=== PATIENT | male | born 1940 | race Native Hawaiian/Other Pacific Islander ===

== ENCOUNTER 2020-03-04 15:15 | Emergency (ER) | payer OTHER ==
[~2020-03-04] VITALS: Ht 175.3 cm; Wt 88.5 kg
[2020-03-04 17:00] VITALS: BP 112/61; TEMP 98.9
== END 2020-03-04 17:00 | disposition home or self-care (01) ==
LOC: ED 15:15
PROC: 0HQGXZZ Repair Left Hand Skin, External Approach (ICD-10-PCS; principal; 2020-03-04)
PROC: 2W3HX1Z Immobilization of Left Thumb using Splint (ICD-10-PCS; 2020-03-04)
DX: S61.012A Laceration without foreign body of left thumb without damage to nail, initial encounter (principal); S62.525A Nondisplaced fracture of distal phalanx of left thumb, initial encounter for closed fracture; W29.8XXA Contact with other powered hand tools and household machinery, initial encounter; Y92.89 Other specified places as the place of occurrence of the external cause
CPT/HCPCS: 90471; 90715; 99283; J7040